=== PATIENT | female | born 1985 | race Caucasian/White ===

== ENCOUNTER → 2017-03-16 | Outpatient (CLI) | payer MEDICAID ==
[~2017-03-16] MED LIST: No meds per pt.
[2017-03-16 13:15] LABS: BASOPHILS # (AUTO) 0.04 x10^3/uL (0-0.1); BASOPHILS % (AUTO) 1 % (0-1); EOSINOPHILS # (AUTO) 0.12 x10^3/uL (0-0.4); EOSINOPHILS % (AUTO) 2 % (1-7); LYMPHOCYTES # (AUTO) 2.79 x10^3/uL (1-3.4); LYMPHOCYTES % (AUTO) 38 % (22-44); MD NO; MEAN CORPUSCULAR HEMOGLOBIN 28.7 pg (27.0-34.8); MEAN CORPUSCULAR HGB CONC 33.8 g/dL (32.4-35.8); MEAN CORPUSCULAR VOLUME 84.8 fL (80-100); MEAN PLATELET VOLUME 8.9 fL (7.4-10.4); MONOCYTES % (AUTO) 6 % (2-9); NEUTROPHILS # (AUTO) 4.01 x10^3/uL (1.8-6.8); NEUTROPHILS % (AUTO) 54 % (42-75); PLATELET COUNT 310 x10^3/uL (130-400); RED BLOOD COUNT 5.17 x10^6/uL (3.82-5.3); RED CELL DISTRIBUTION WIDTH 13.4 % (9.6-15.2)
[2017-03-16 13:19] LABS: MICROSCOPIC NOT IND
[2017-03-16 13:20] LABS: INTERNATIONAL NORMALIZED RATIO 0.96 (0.93-1.1)
[2017-03-16 13:21] LABS: CULTURE INDICATED? NO
[2017-03-16 13:23] LABS: ANION GAP 8 mmol/L (5-15); CALCIUM 9.1 mg/dL (8.5-10.1); CHLORIDE 105 mmol/L (98-107); CREATININE 1.48 mg/dL (0.55-1.02)
== END ==
LOC: STAR 11:56
PROVIDERS: ATTEND Neurological Surgery
DX: Z01.818 Encounter for other preprocedural examination (principal); M41.86 Other forms of scoliosis, lumbar region
CPT/HCPCS: 36415; 71046; 72114; 80048; 81003; 85025; 85610; 85730; 93005

== ENCOUNTER 2017-03-25 10:08 | Inpatient (IN) | payer MEDICAID ==
[~2017-03-25] VITALS: Ht 165.1 cm; Wt 75.8 kg
[~2017-03-25 10:08] MED LIST changes: +BACITRACIN 50,000 UNIT ONE; +BUPIVACAINE/PF 0.25% ONE; +BUPIVACAINE/PF 0.5% ONE; +THROMBIN 5,000 UNIT VIAL TP ONE
[2017-03-25] MEDS ORDERED: LACTATED RINGERS 1,000 ML IV SCH (10:46)
[2017-03-25 10:48] VITALS: BP 100/53
[2017-03-25] MEDS ORDERED: FENTANYL PF 250 MCG/5ML ONE (11:54)
[2017-03-25] MEDS ORDERED: MIDAZOLAM 1 MG/ML, 2ML ONE (11:54)
[2017-03-25] MEDS ORDERED: CEFAZOLIN 1,000 MG ONE ×2 (11:55)
[2017-03-25] MEDS ORDERED: SUCCINYLCHOLINE 20 MG/ML, 10ML ONE (11:55)
[2017-03-25] MEDS ORDERED: PROPOFOL 10 MG/ML, 20ML ONE ×2 (11:55→12:50)
[2017-03-25] MEDS ORDERED: PROMETHAZINE 25 MG/ML, 1ML IV PRN (12:00)
[2017-03-25] MEDS ORDERED: EPHEDRINE 50 MG/ML, 1ML IVPush PRN (12:00)
[2017-03-25] MEDS ORDERED: OXYcodone 5 MG/5 ML ORAL.SOL UDC PO PRN (12:00)
[2017-03-25] MEDS ORDERED: MEPERIDINE/PF 25MG/0.5ML IVPush PRN (12:00)
[2017-03-25] MEDS ORDERED: DIAZEPAM 5 MG/ML, 2ML IVPush PRN (12:00)
[2017-03-25] MEDS ORDERED: ALBUTEROL SULFATE 2.5 MG/3 ML NPPB PRN (12:00)
[2017-03-25] MEDS ORDERED: ACETAMINOPHEN 325 MG TABLET PO PRN (12:00)
[2017-03-25] MEDS ORDERED: hydrALAzine 20 MG/ML, 1ML IV PRN (12:00)
[2017-03-25] MEDS ORDERED: METOPROLOL 1 MG/ML, 5ML IV PRN (12:00)
[2017-03-25] MEDS ORDERED: LABETALOL 5MG/ML, 20ML IV PRN (12:00)
[2017-03-25] MEDS ORDERED: FENTANYL PF 100 MCG/2ML IV PRN (12:00)
[2017-03-25] MEDS ORDERED: ONDANSETRON 2MG/ML, 2ML IVPush PRN ×2 (12:00→16:00)
[2017-03-25] MEDS ORDERED: SCOPOLAMINE PATCH, 1.5MG PATCH.TD72 TD ONE ×2 (12:34→13:00)
[2017-03-25] MEDS ORDERED: DEXAMETHASONE 4 MG/ML, 5ML ONE (12:50)
[2017-03-25] MEDS ORDERED: GLYCOPYRROLATE 0.2MG/1ML, 5ML ONE (12:50)
[2017-03-25] MEDS ORDERED: NEOSTIGMINE 1 MG/ML, 10ML ONE (12:50)
[2017-03-25] MEDS ORDERED: ROCURONIUM 10 MG/ML,10ML ONE (12:50)
[2017-03-25] MEDS ORDERED: BUPIVACAINE/PF 0.5% INFIL ONE (14:00)
[2017-03-25] MEDS ORDERED: BACITRACIN 50,000 UNIT IRRIG ONE (14:02)
[2017-03-25] MEDS ORDERED: THROMBIN 5,000 UNIT VIAL TP ONE (14:02)
[2017-03-25] MEDS ORDERED: FENTANYL PF 100 MCG/2ML ONE (14:20)
[2017-03-25] MEDS ORDERED: FENTANYL PF 100 MCG/2ML EPIDPUSH ONE (14:23)
[2017-03-25] MEDS ORDERED: BUPIVACAINE/PF 0.25% EPIDPUSH ONE (14:24)
[2017-03-25] MEDS ORDERED: ONDANSETRON 2MG/ML, 2ML ONE (15:27)
[2017-03-25] MEDS ORDERED: HYDROmorphone/PF 4 MG/ML, 1ML IM PRN (16:00)
[2017-03-25] MEDS ORDERED: PHARMACY MAY ADJ FOR RENAL FX MC PRN (16:00)
[2017-03-25] MEDS ORDERED: SENNA/DOCUSATE TABLET PO PRN (16:00)
[2017-03-25] MEDS ORDERED: OXYcodone/APAP 5/325MG TABLET PO PRN (16:00)
[2017-03-25] MEDS ORDERED: HYDROcodone/APAP 5/325 TABLET PO PRN (16:00)
[2017-03-25] MEDS ORDERED: BISACODYL 10 MG SUPP PR PRN (16:00)
[2017-03-25] MEDS ORDERED: DIPHENHYDRAMINE 50 MG/ML, 1ML IVPush PRN (16:00)
[2017-03-25] MEDS ORDERED: PROMETHAZINE 25 MG/ML, 1ML IM PRN (16:00)
[2017-03-25] MEDS: HYDROmorphone 1 MG/ML, 1ML IV PRN ×2 (16:15→16:21)
[2017-03-25] MEDS ORDERED: ACETAMINOPHEN 650 MG/20.3 ML UDC ONE (16:16)
[2017-03-25] MEDS ORDERED: OXYcodone 5 MG/5 ML ORAL.SOL UDC ONE (16:17)
[2017-03-25] MEDS ORDERED: HYDROmorphone 2 MG/ML, 1ML ONE (16:21)
[2017-03-25] MEDS: D5%-0.9% NACL+KCL 20MEQ 1,000 ML IV SCH (18:42)
[2017-03-25] MEDS: CYCLOBENZAPRINE 10 MG TABLET PO PRN (19:21)
[2017-03-25] MEDS ORDERED: NICOTINE 14MG/24 HR PATCH.TD24 TD SCH (20:00)
[2017-03-25] MEDS: CEFAZOLIN PMX 1GM/50ML 50 ML IVPB SCH (21:24)
[2017-03-25] MEDS: SODIUM CHLORIDE FLUSH 10ML SYR IVF SCH (21:25)
[2017-03-25] MEDS: HYDROcodone/APAP 10/325 MG TABLET PO PRN (22:59)
[2017-03-26 01:28] VITALS: BP 94/52
[2017-03-26] MEDS: METHOCARBAMOL 750 MG TABLET PO PRN ×2 (01:43→11:37)
[2017-03-26] MEDS: CYCLOBENZAPRINE 10 MG TABLET PO PRN (03:02)
[2017-03-26] MEDS: HYDROcodone/APAP 10/325 MG TABLET PO PRN ×2 (03:02→08:06)
[2017-03-26] MEDS: CEFAZOLIN PMX 1GM/50ML 50 ML IVPB SCH (04:50)
[2017-03-26] MEDS: D5%-0.9% NACL+KCL 20MEQ 1,000 ML IV SCH (04:50)
[2017-03-26] MEDS: SODIUM CHLORIDE FLUSH 10ML SYR IVF SCH (08:07)
[2017-03-26 08:13] VITALS: BP 102/53
[2017-03-26] MEDS ORDERED: METH750T2 PO (11:05)
[2017-03-26] MEDS ORDERED: HYDR-3245 PO (11:05)
[2017-03-26 11:09] VITALS: BP 102/56
[2017-03-26] MEDS ORDERED: FLU VACC QS2017-18 (36MOS+) UP/PF 0.5 ML IM-VACC ONE (11:30)
[2017-03-26] MEDS ORDERED: PNEUMOCOCCAL 23 VACCINE IM-VACC ONE (11:30)
[2017-03-26] MEDS ORDERED: DOXY100T PO (12:11)
== END 2017-03-26 12:03 | disposition home or self-care (01) | DRG 455 ==
LOC: ORIP 10:08 → 4NOR 17:14 → DCLOUNGE 03-26 12:03
PROVIDERS: ADMIT Neurological Surgery; ATTEND Neurological Surgery
PROC: 0SG3071 Fusion of Lumbosacral Joint with Autologous Tissue Substitute, Posterior Approach, Posterior Column, Open Approach (ICD-10-PCS; 2017-03-25)
PROC: 01NB0ZZ Release Lumbar Nerve, Open Approach (ICD-10-PCS; 2017-03-25)
PROC: 01NR0ZZ Release Sacral Nerve, Open Approach (ICD-10-PCS; 2017-03-25)
PROC: 4A11X4G Monitoring of Peripheral Nervous Electrical Activity, Intraoperative, External Approach (ICD-10-PCS; 2017-03-25)
PROC: 0SG30AJ Fusion of Lumbosacral Joint with Interbody Fusion Device, Posterior Approach, Anterior Column, Open Approach (ICD-10-PCS; principal; 2017-03-25 18:00)
DX: M48.07 Spinal stenosis, lumbosacral region (principal); M51.17 Intervertebral disc disorders with radiculopathy, lumbosacral region; M48.061 Spinal stenosis, lumbar region without neurogenic claudication; Z23 Encounter for immunization
CPT/HCPCS: 72100; 81025; 90686; 90732; C1713; C1767; J0690; J1100; J1170; J2250; J2405; J2704; J2710; J3010; J3490; C1762; J0330; J3480; J7120